=== PATIENT | male | born 1965 | race African-American/Black ===

== ENCOUNTER 2018-06-12 08:42 | Outpatient (CLI) ==
--- NOTE | 2018-06-12 09:41 | US ---
EXAM: Right upper quadrant abdominal ultrasound. History: Right upper quadrant abdominal pain. Technique: Multiple sonographic images through the abdomen were obtained. Color duplex Doppler was used to interrogate vascular flow. Findings: The liver is mildly enlarged measuring 16.9 cm in length. No focal liver lesions identified sonograp hically. No abdominal ascites. There is antegrade flow within the main portal vein. Periportal ech oes within the liver are maintained. Limited visualization of the right kidney demonstrates no eviden ce for hydronephrosis. No shadowing gallstones. Gallbladder sludge versus reverberation artifact. G allbladder wall is upper limits of normal in thickness. Common bile duct measures 0.3 cm in caliber. Impression: 1. Gallbladder sludge versus reverberation artifact and gallbladder wall is upper limits of normal i n thickness. If there is concern for cholecystitis, consider correlation with HIDA scan. 2. Mild hepatomegaly
== END 2018-06-12 08:43 | disposition home or self-care (01) ==
LOC: RAD 08:42
PROVIDERS: ATTEND Nurse Practitioner Family
DX: R10.11 Right upper quadrant pain (principal); R10.811 Right upper quadrant abdominal tenderness

== ENCOUNTER 2018-08-28 09:46 | Outpatient (CLI) ==
--- NOTE | 2018-08-28 10:31 | DI ---
EXAM: Left hip two-view HISTORY: Pain in left hip COMPARISON: None FINDINGS: The bones are normal. The hip joint is normal. No focal soft tissue abnormality. IMPERSSION: Normal examination.
== END 2018-08-28 09:47 | disposition home or self-care (01) ==
LOC: LAB 09:46
PROVIDERS: ATTEND Nurse Practitioner Family
DX: E78.5 Hyperlipidemia, unspecified (principal); I10 Essential (primary) hypertension; R07.9 Chest pain, unspecified; M25.552 Pain in left hip; G89.29 Other chronic pain; Z12.5 Encounter for screening for malignant neoplasm of prostate
CPT/HCPCS: 36415; 80053; 80061; 84443; 85025; 93005; 93010